=== PATIENT | female | born 1955 | race Caucasian/White ===

== ENCOUNTER 2022-03-28 16:06 | Emergency (ER) | payer OTHER ==
[~2022-03-28] VITALS: Ht 165.1 cm; Wt 66.2 kg
--- NOTE | 2022-03-28 16:39 | NUR ---
TO ER BED 3, [id number] FOR MIGRAINE QUIROGA STARTED TODAY, HX OF MIGRAINE, AAOX3, BREATHING EVEN AND NON LABORED, CONNECTED TO MONITOR, AWAITING MD ORDERS
[2022-03-28] MEDS ORDERED: IV NS 0.9% 1,000 ML BAG IV ONE (17:30)
[2022-03-28] MEDS ORDERED: ONDANSETRON HCL/PF 4 MG/2 ML VIAL IVP ONE (17:30)
[2022-03-28] MEDS ORDERED: SUMATRIPTAN SUCCINATE 6 MG/0.5 ML VIAL SQ ONE ×2 (17:30→17:35)
[2022-03-28] MEDS ORDERED: diphenhydrAMINE HCL 50 MG/ML VIAL IV ONE (17:30)
[2022-03-28] MEDS ORDERED: diphenhydrAMINE HCL 50 MG/ML VIAL ONE (17:35)
[2022-03-28] MEDS ORDERED: ONDANSETRON HCL/PF 4 MG/2 ML VIAL ONE (17:35)
[2022-03-28] MEDS ORDERED: HYDROCODONE/APAP 5/325MG TABLET ONE (18:20)
[2022-03-28] MEDS ORDERED: HYDROCODONE/APAP 5/325MG TABLET PO ONE (18:30)
[2022-03-28] MEDS ORDERED: SUMA100T16 PO ×2 (18:38→18:59)
--- NOTE | 2022-03-28 18:45 | NUR ---
AMBULATED TO THE RESTROOM WITH STEADY GAIT
--- NOTE | 2022-03-28 19:02 | NUR ---
IV removed. Catheter intact and site benign. Pressure and 4x4 applied to site. No bleeding noted.Patient discharged to home in stable condition. Written and verbal after care instructions given. Patient verbalizes understanding of instruction.
[2022-03-28 19:03] VITALS: BP 129/80
== END 2022-03-28 19:03 | disposition home or self-care (01) ==
LOC: ER 16:09
DX: G43.909 Migraine, unspecified, not intractable, without status migrainosus (principal); R11.2 Nausea with vomiting, unspecified; Z79.899 Other long term (current) drug therapy
CPT/HCPCS: 96361; 96372; 96374; 96375; 99284; J1200; J2405; J3030; J7030